=== PATIENT | female | born 1995 | race Two or more races ===

== ENCOUNTER → 2017-06-16 | Emergency (ER) | payer OTHER ==
[~2017-06-16] VITALS: Ht 154.9 cm; Wt 59.0 kg
[~2017-06-16] MED LIST: CELEBREX100 MG PO; KEFLEX500 MG PO; PERCOCET 5-3251 EACH PO; PRENA1 TRUE CO1 EACH; PRENATAL TABLE1 EAC3 PO
== END | disposition home or self-care (01) ==
LOC: ER 23:04
DX: N39.0 Urinary tract infection, site not specified (principal); N83.12 Corpus luteum cyst of left ovary

== ENCOUNTER 2020-01-17 23:59 | Inpatient (IN) | payer OTHER ==
[~2020-01-17] VITALS: Ht 154.9 cm; Wt 2.7 kg
[2020-01-18] MEDS ORDERED: PRENATAL CAPLE1 EAC1 PO (00:27)
[2020-01-18] MEDS ORDERED: NIFEDIPINE10 MG PO (00:28)
[2020-01-18] MEDS ORDERED: LEVOTHYROXINE25 MCG PO (00:29)
[2020-01-18] MEDS ORDERED: TERBUTALINE SULF5 MG PO (00:31)
== END 2020-01-23 13:12 | disposition home or self-care (01) | DRG 788 ==
LOC: OBS/DEL 23:59 → SURG-SUITE 01-18 10:49 → LDR 01-18 10:49 → SURG-SUITE 01-20 14:13
PROVIDERS: ADMIT Specialist; ATTEND Specialist
PROC: 4A0HXFZ Measurement of Products of Conception, Cardiac Rhythm, External Approach (ICD-10-PCS; 2020-01-18)
PROC: 10D00Z1 Extraction of Products of Conception, Low, Open Approach (ICD-10-PCS; principal; 2020-01-20 12:15)
DX: O60.14X0 Preterm labor third trimester with preterm delivery third trimester, not applicable or unspecified (principal); O82 Encounter for cesarean delivery without indication; O34.211 Maternal care for low transverse scar from previous cesarean delivery; Z3A.36 36 weeks gestation of pregnancy; Z37.0 Single live birth

== ENCOUNTER 2022-01-09 10:09 | Emergency (ER) | payer OTHER ==
[~2022-01-09] VITALS: Ht 154.9 cm; Wt 61.2 kg
[~2022-01-09 10:09] MED LIST changes: +LEVOTHYROXINE25 MCG PO; +NIFEDIPINE10 MG PO; +PRENATAL CAPLE1 EAC1 PO; +TERBUTALINE SULF5 MG PO
== END 2022-01-09 14:30 | disposition home or self-care (01) ==
LOC: ER 10:09
DX: K52.9 Noninfective gastroenteritis and colitis, unspecified (principal); R11.10 Vomiting, unspecified; I10 Essential (primary) hypertension; E03.9 Hypothyroidism, unspecified

== ENCOUNTER 2022-09-04 06:50 | Emergency (ER) | payer OTHER ==
[~2022-09-04] VITALS: Ht 154.9 cm; Wt 63.5 kg
[2022-09-04] MEDS ORDERED: TUSNEL LIQUID178 ML PO (09:57)
[2022-09-04] MEDS ORDERED: ZITHROMAX500 MG PO (09:57)
[2022-09-04] MEDS ORDERED: DOLOGEN CAPLET1 EACH PO (09:57)
[2022-09-04] MEDS ORDERED: ZYRTEC10 M3 PO (09:57)
[2022-09-04] MEDS ORDERED: OSEL75CA PO (09:58)
== END 2022-09-04 10:07 | disposition home or self-care (01) ==
LOC: ER 06:50
DX: J06.9 Acute upper respiratory infection, unspecified (principal); Z20.822 Contact with and (suspected) exposure to COVID-19